=== PATIENT | female | born 1960 | race Caucasian/White ===

== ENCOUNTER 2019-03-31 23:45 | Inpatient (IN) | payer OTHER ==
[~2019-03-31] VITALS: Ht 162.6 cm; Wt 93.0 kg
--- NOTE | 2019-04-01 01:02 | NUR ---
Patient arrived to room via EMS cart. Reports right upper abd pain 10/10, with facial grimacing. Denies nausea currently. Reports unable to take deep breathe due to pain.
[2019-04-01 01:08] VITALS: BP 168/90; PULSE 101; TEMP 98.3
[2019-04-01] MEDS ORDERED: MOTRIN 200200 MG/TAB PO (01:45)
[2019-04-01] MEDS ORDERED: NAPROSYN500 MG PO (01:45)
[2019-04-01] MEDS ORDERED: TYLENOL 325MG325 MG PO (01:46)
[2019-04-01] MEDS ORDERED: ZYRTEC 10MG10 MG PO (01:47)
[2019-04-01] MEDS ORDERED: CYMBALTA 60MG60 MG PO (01:48)
[2019-04-01] MEDS ORDERED: PRILOSEC 20MG20 MG PO (01:48)
[2019-04-01] MEDS ORDERED: ZESTRIL40 MG PO (01:49)
[2019-04-01] MEDS ORDERED: ZANAFLEX 4MG TAB4 MG PO (01:50)
[2019-04-01] MEDS ORDERED: LIDODERM 5% PATC1 EA TP (01:50)
[2019-04-01 05:00] VITALS: BP 148/88; PULSE 102; TEMP 98.8
[2019-04-01 06:44] LABS: MUCOUS Present /lpf; PH 5 (5-8); SQUAMOUS EPITHELIAL 0-2 /hpf; URINE APPEARANCE Clear; URINE BACTERIA None Seen /hpf; URINE BILIRUBIN Negative (NEGATIVE); URINE BLOOD Negative (NEGATIVE); URINE COLOR Yellow; URINE GLUCOSE Negative (NEGATIVE); URINE KETONE 1+ (NEGATIVE); URINE LEUKOCYTE ESTERASE Trace (NEGATIVE); URINE NITRATE Negative (NEGATIVE); URINE PROTEIN(semi-quant) Negative (NEGATIVE); URINE UROBILINOGEN Negative (NEGATIVE)
[2019-04-01 07:00] LABS: COLLECTION METHOD CLEAN CATCH
[2019-04-01 07:19] VITALS: BP 127/70; PULSE 100; TEMP 98.2
--- NOTE | 2019-04-01 08:25 | NUR ---
Pt continues to rest in bed. She appears comfortable but states she is having 9/10 pain. Pt requested PRN pain medication, PRN dilaudid given. IVF are infusing into left AC without difficulty. Pt remains NPO. Denies any other needs.
[2019-04-01 09:13] LABS: BASO % 0.3 % (0.0-2.0); EOS % 0.2 % (0-4.0); GRAN # 8.2 (1.4-6.5); GRAN % 79.4 % (42.2-75.2); HEMATOCRIT 40.1 % (37.0-47.0); HEMOGLOBIN 13.2 g/dl (12.5-16.0); LYMPH # 0.8 (1.2-3.4); LYMPH % 7.7 % (20.0-51.0); MEAN CELL VOLUME 98 fl (80.0-100.0); MEAN CORPUSCULAR HEMOGLOBIN 32 pg (27.0-31.0); MEAN CORPUSCULAR HGB CONC 33 g/dl (33.0-37.0); MEAN PLATELET VOLUME 9.4 fl (7.4-10.4); MONO # 1.3 (0.1-0.6); MONO % 12.1 % (1.7-9.3); PLATELET COUNT 265 K/mm3 (130-400); RED BLOOD COUNT 4.08 M/mm3 (4.10-5.30); REDCELL DISTRIBUTION WIDTH-CV 12.6 % (11.5-14.5)
[2019-04-01 09:17] LABS: INR 1.1 (0.8-3.0); PROTHROMBIN TIME 12.5 SECONDS (9.7-12.8)
[2019-04-01 09:20] LABS: PARTIAL THROMBOPLASTIN TIME 33.7 SECONDS (26.0-37.0)
[2019-04-01 09:22] LABS: ALBUMIN 3.9 gm/dL (3.5-5.0); BILIRUBIN,TOTAL 0.7 mg/dL (0.0-1.0); CALCIUM 8.9 mg/dL (8.4-10.2); CREATININE, serum 0.75 (0.52-1.25); MAGNESIUM 1.7 mg/dL (1.6-2.3)
--- NOTE | 2019-04-01 09:47 | NUR ---
Dr. Rivera at bedside to discuss plan of care.
--- NOTE | 2019-04-01 10:26 | NUR ---
Pt reports 9/10 abdominal pain. Pt given PRN percocet. Diet advanced to clears. Tolerating water. Surgical consent signed.
[2019-04-01 11:48] VITALS: BP 143/82; PULSE 109; TEMP 100.8
--- NOTE | 2019-04-01 15:27 | NUR ---
Pt was given PRN percocet upon request for 8/10 abdominal pain.
[2019-04-01 16:07] VITALS: BP 126/66; PULSE 102; TEMP 100.8; TEMP 99.1
--- NOTE | 2019-04-01 18:05 | NUR ---
Pt has had an uneventful shift. Pain is controlled with PRN percocet. Tolerating clear liquids.
--- NOTE | 2019-04-01 19:00 | NUR ---
Report received from Elodia DUNLAP. Patient up to bathroom to void at this time. Gait steady. Reports increased abdominal RUQ pain following eating CLD and percocet given at 1940. Patient then resting back in bed. Fresh icewater and toothbrush/toothpaste given.
[2019-04-01 19:51] VITALS: BP 132/71; PULSE 103; TEMP 99.5
--- NOTE | 2019-04-01 22:11 | NUR ---
Room dark and patient rests quietly in bed, respirations with ease.
--- NOTE | 2019-04-01 23:22 | NUR ---
UP INDEPENDENTLY IN ROOM, VOIDING WITH NO PROBLEMS ON TOILET. REPORTS PASSING FLATUS. PATIENT ED MATERIAL GIVEN TO PATIENT REGARDING SURGERY. CALL LIGHT/WATER WITHIN PATIENT'S REACH, PATIENT VERBALIZED UNDERSTANDING OF NPO STATUS AFTER MIDNIGHT FOR SURGERY SCHEDULED FOR TOMORROW MORNING.
[2019-04-02] VITALS (12 sets, daily range): BP systolic 127–164; BP diastolic 62–103; PULSE 50–96; TEMP 98.3–99.2
--- NOTE | 2019-04-02 00:10 | NUR ---
PATIENT VERBALIZED UNDERSTANDING OF NPO STATUS. NO ADDITIONAL QUESTIONS OR CONCERNS REGARDING SURGERY. REQUESTING TO HAVE SHOWER PRIOR TO SURGERY IF POSSIBLE, INSTRUCTED WOULD SHOWER WITH HIBICLENS SOAP FOR PREOP SHOWER, WITH PATIENT VERBALIZING UNDERSTANDING.
--- NOTE | 2019-04-02 02:47 | NUR ---
CONTINUES TO SLEEP WITH NONLABORED BREATHING, UP INDEPENDENTLY TO BATHROOM, VOIDING WITHOUT PROBLEMS OR CONCERNS.
[2019-04-02 07:04] LABS: ALBUMIN 3.3 gm/dL (3.5-5.0); BILIRUBIN,TOTAL 0.5 mg/dL (0.0-1.0); CALCIUM 8.6 mg/dL (8.4-10.2); CREATININE, serum 0.6 (0.52-1.25); POTASSIUM 3.6 mmol/L (3.4-5.0); TOTAL PROTEIN 6.1 gm/dL (6.4-8.2)
[2019-04-02 07:05] LABS: BASO % 0.4 % (0.0-2.0); EOS # 0.1 (0.0-0.7); EOS % 0.8 % (0-4.0); GRAN # 6.5 (1.4-6.5); LYMPH # 0.9 (1.2-3.4); LYMPH % 10.7 % (20.0-51.0); MEAN CELL VOLUME 99 fl (80.0-100.0); MEAN CORPUSCULAR HGB CONC 32 g/dl (33.0-37.0); MEAN PLATELET VOLUME 9.8 fl (7.4-10.4); MONO # 0.9 (0.1-0.6); MONO % 10.9 % (1.7-9.3); PLATELET COUNT 209 K/mm3 (130-400); RED BLOOD COUNT 3.46 M/mm3 (4.10-5.30); REDCELL DISTRIBUTION WIDTH-CV 12.6 % (11.5-14.5)
[2019-04-02 07:06] LABS: HEMATOCRIT 34.4 % (37.0-47.0); HEMOGLOBIN 11.1 g/dl (12.5-16.0); MEAN CORPUSCULAR HEMOGLOBIN 32 pg (27.0-31.0)
--- NOTE | 2019-04-02 07:25 | NUR ---
PATIENT SLEEPING, DOES NOT AWAKEN DURING SHIFT CHANGE REPORT TO DAY NURSE. IV FLUIDS INFUSION WITH NO PROBLEMS.
[2019-04-02] MEDS ORDERED: MOTRIN 600600 MG/TAB PO (13:19)
[2019-04-02] MEDS ORDERED: PERCOCET 325 MG1 TA2 PO (13:19)
[2019-04-02] MEDS ORDERED: COLACE 100100 MG/CAP PO (13:20)
[2019-04-02] MEDS ORDERED: AMOXICILLIN 8751 TAB PO (13:55)
--- NOTE | 2019-04-02 14:52 | NUR ---
[employer] Leader met with patient's , Olaf (ph#[phone]) to discuss discharge planning as patient has not returned from surgery at this time. Patient has a home in [place], but also has a farm in [place] that she and her spend much of their time at. Patient receives primary care and medications from [facility]. Patient independent with ADLS and does not use any DME. Patient does not have [facility], but patient's was interested in taking home form. SW provided. Patient plans to return home upon discharge.
--- NOTE | 2019-04-02 17:15 | NUR ---
Patient resting in bed. She has rested this afternoon post op. Vitals stable on O2. Robotic lap site x5, edges well approximated open to air. She has been up to the bathroom & voided. She denies nausea, tolerating diet. IVf per orders. Will monitor.
--- NOTE | 2019-04-02 18:49 | NUR ---
Patient continues to do well. Tolerated dinner. Po Percocet relieved pain. Vitals stable. She has been up and voided. Bedside report to night nurse
--- NOTE | 2019-04-02 19:00 | NUR ---
BEDSIDE SHIFT REPORT FROM JACKY DUNLAP.
--- NOTE | 2019-04-02 19:33 | NUR ---
UNRELIEVED ABD "GAS PAINS" AFTER PERCOCET. REPEAT PERCOCET 1 TAB GIVEN. ENC PT TO SLOWLY ROCK BACK AND FORTH. WILL AMB IN HALLS THIS PM. PT RELATES PASSED ALITTLE GAS EARLIER.
--- NOTE | 2019-04-02 20:00 | NUR ---
PT TAKING PO WELL. VOIDING. VSS. NO INCISIONAL DRAINAGE. IVF'S DC'D. INT NEEDLE TO LT AC FLUSHES WELL.
--- NOTE | 2019-04-02 23:20 | NUR ---
PT RESTING IN BED. FEELS MUCH BETTER BUT STILL RATES ABD PAIN AT 5. KPAD AND HOT TEA HELPED ALSO.
[2019-04-03] VITALS (9 sets, daily range): BP systolic 114–172; BP diastolic 46–89; PULSE 60–102; TEMP 97.5–100.3
--- NOTE | 2019-04-03 05:30 | NUR ---
STILL HAVING UPPER ABD QUAD PAIN. DRINKING HOT TEA. NO N/V THROUGH THE NIGHT. AMB TO BR. VOIDED W/O DIFFICULY. BACK TO BED. LAP SITES CDI.
[2019-04-03 07:03] LABS: BASO % 0.2 % (0.0-2.0); EOS # 0.1 (0.0-0.7); EOS % 1.2 % (0-4.0); GRAN # 6.7 (1.4-6.5); GRAN % 78.5 % (42.2-75.2); HEMOGLOBIN 10.4 g/dl (12.5-16.0); LYMPH # 0.9 (1.2-3.4); LYMPH % 11.1 % (20.0-51.0); MEAN CELL VOLUME 100 fl (80.0-100.0); MEAN CORPUSCULAR HEMOGLOBIN 32 pg (27.0-31.0); MEAN CORPUSCULAR HGB CONC 32 g/dl (33.0-37.0); MEAN PLATELET VOLUME 9.6 fl (7.4-10.4); MONO # 0.7 (0.1-0.6); MONO % 8.6 % (1.7-9.3); PLATELET COUNT 196 K/mm3 (130-400); RED BLOOD COUNT 3.25 M/mm3 (4.10-5.30); REDCELL DISTRIBUTION WIDTH-CV 12.7 % (11.5-14.5)
[2019-04-03 07:08] LABS: HEMATOCRIT 32.5 % (37.0-47.0)
[2019-04-03 07:10] LABS: ALBUMIN 3.2 gm/dL (3.5-5.0); BILIRUBIN,TOTAL 0.5 mg/dL (0.0-1.0); CALCIUM 8.5 mg/dL (8.4-10.2); CREATININE, serum 0.53 (0.52-1.25); POTASSIUM 3.6 mmol/L (3.4-5.0); TOTAL PROTEIN 6.1 gm/dL (6.4-8.2)
--- NOTE | 2019-04-03 09:15 | NUR ---
Patient is passing gas this morning, but continues to have upper abdominal pain. Was instructed to splint abdomen when needed. Given prn Percocet this AM, but was not controlling the pain well enough. Just gave one dose of Dilaudid. Will continue to monitor. Patient at this time is afebrile. She is ambulating independently in her room and is safe.
--- NOTE | 2019-04-03 15:35 | NUR ---
Patient resting in recliner, call light in reach and slip proof socks on. Patient reports nausea is relieved at this time. She just had a shower and reports feeling better with pain to left side of abdomen 3/10. She was given prn pain meds with good effect. Will continue to monitor.
--- NOTE | 2019-04-03 17:28 | NUR ---
Patient reported abdominal pain at 5/10 and given prn pain meds. Will continue to monitor.
--- NOTE | 2019-04-03 18:32 | NUR ---
Patient having good urine output, yellow, clear. Drinking plenty of water. Has been sweaty but she feels it is more from the pain meds. VSS - is afebrile. Will continue to monitor.
--- NOTE | 2019-04-03 21:03 | NUR ---
PT RESTING IN BED. ASSISTED TO BR W/ WALKER. LT SIDE WEAK. UNSTEADY GAIT. BACK TO BED. CALL LIGHT IN REACH. BED AL;ARM SET.
[2019-04-04 01:07] VITALS: BP 165/81; PULSE 91; TEMP 98.6
--- NOTE | 2019-04-04 04:39 | NUR ---
PT RESTING MUCH BETTER TONIGHT. PAIN MED GIVEN PER REQ FOR ABD PAIN. PT REPORTS PASSING MOD AMT FLATUS. AMB IN ROOM INDEPENDENTLY.
[2019-04-04 05:21] VITALS: BP 151/72; PULSE 81; TEMP 98.7
--- NOTE | 2019-04-04 06:00 | NUR ---
PT REPORTED SHARP SEVERE PAIN UNDER LT BREAST. SEE MAR FOR PAIN MED GIVEN. LUNGS CTA BILAT. O2 SAT 94% AT THIS TIME. ENC PT TO AMB IN HALLS TOD[place]. SHIFT REPORT TO SEAN DUNLAP.
[2019-04-04 06:30] LABS: BASO % 0.5 % (0.0-2.0); EOS # 0.4 (0.0-0.7); GRAN % 67.4 % (42.2-75.2); HEMOGLOBIN 10.7 g/dl (12.5-16.0); MEAN CELL VOLUME 100 fl (80.0-100.0); MEAN CORPUSCULAR HEMOGLOBIN 32 pg (27.0-31.0); MEAN CORPUSCULAR HGB CONC 32 g/dl (33.0-37.0); MONO # 0.6 (0.1-0.6); MONO % 9.8 % (1.7-9.3); PLATELET COUNT 234 K/mm3 (130-400); RED BLOOD COUNT 3.33 M/mm3 (4.10-5.30); REDCELL DISTRIBUTION WIDTH-CV 12.3 % (11.5-14.5)
[2019-04-04 06:37] LABS: HEMATOCRIT 33.2 % (37.0-47.0)
[2019-04-04 06:40] LABS: ALBUMIN 3.3 gm/dL (3.5-5.0); BILIRUBIN,TOTAL 0.5 mg/dL (0.0-1.0); CALCIUM 8.9 mg/dL (8.4-10.2); CREATININE, serum 0.44 (0.52-1.25); POTASSIUM 3.5 mmol/L (3.4-5.0); TOTAL PROTEIN 6.1 gm/dL (6.4-8.2)
--- NOTE | 2019-04-04 08:00 | NUR ---
Patient resting in bed at this time. Patient is alert and oriented, answers questions appropriately. Patient reports she had a bowel movement this morning. Pain is currently controlled, lap sites are well approximated, no redness or dainage noted. Patient denies further needs at this time, call light within reach.
[2019-04-04 08:59] VITALS: BP 151/82; PULSE 84; TEMP 98
--- NOTE | 2019-04-04 13:03 | NUR ---
Discharge teaching completed. Scripts given to patient. Instructions for making follow up appointments given, importance of keeping appointments stressed. INT removed, catheter intact, hemostasis achieved. Patient confirms that she has all her belongings. Patient escorted to ED entrance, where she entered a private car.
== END 2019-04-04 13:03 | disposition home or self-care (01) | DRG 419 ==
LOC: MEDICAL 23:45 → SURG 04-01 01:00
PROVIDERS: Nurse Practitioner Family; Physician Assistant; Surgery; ADMIT Student in an Organized Health Care Education/Training Program
PROC: 8E0W4CZ Robotic Assisted Procedure of Trunk Region, Percutaneous Endoscopic Approach (ICD-10-PCS; 2019-04-02)
PROC: 0FT44ZZ Resection of Gallbladder, Percutaneous Endoscopic Approach (ICD-10-PCS; principal; 2019-04-02 10:00)
DX: K81.0 Acute cholecystitis (principal); K81.1 Chronic cholecystitis; K74.0 Hepatic fibrosis; I10 Essential (primary) hypertension; M79.7 Fibromyalgia; K21.9 Gastro-esophageal reflux disease without esophagitis; J30.2 Other seasonal allergic rhinitis; K44.9 Diaphragmatic hernia without obstruction or gangrene; K58.9 Irritable bowel syndrome, unspecified; E88.89 Other specified metabolic disorders; R00.0 Tachycardia, unspecified; Z79.891 Long term (current) use of opiate analgesic; Z90.710 Acquired absence of both cervix and uterus
CPT/HCPCS: 99222-AI; 99231-AI; 99232-AI; 99239; A4216; A9284; C9113; J0696; J1170; J1885; J2405; J2543; J2704; J3010; J7030